=== PATIENT | female | born 1965 | race Caucasian/White ===

== ENCOUNTER 2017-02-15 09:58 | Emergency (ER) | payer SELFPAY ==
[2017-02-15 10:02] VITALS: TEMP 98.1; BMI 28.8
--- NOTE | 2017-02-15 10:12 | PDOC ---
History of Present Illness - General History Source: Patient Exam Limitations: No Limitations - History of Present Illness Initial Comments: 02/15/17 10:41 The patient is a 51 year old female, with a significant past medical history of HTN and NIDDM, who presents to the emergency department with elevated blood pressure. The patient reports having associated intermittent headaches. When she has the headaches, they are frontal, gradual in onset, and resolve with tylenol. She says she often has a headache when her BP is high, and has a 4/10 headache currently. Has not been checking her BP at home. She denies recent fevers, chills, or dizziness. She denies recent nausea, vomit, diarrhea or constipation. She denies recent dysuria, frequency, urgency or hematuria. She denies recent dizziness, lightheadedness, chest pain or shortness of breath. Pt reports that she ran out of BP meds 2 months ago and has not been able to obtain them as she has a lapse in her insurance. She reports she will be insured again on 02/26 and already as an appointment scheduled with her PMD. Allergies: NKA Past surgical history: None reported. Social history: Nonsmoker. Denies EtOH use and recreational drug use. Primary Care Physician: Dr.James Arzola <Patrick Wallace - Last Filed: 02/15/17 10:41> <Ed Card - Last Filed: 02/15/17 11:12> - General Chief Complaint: Blood Pressure Problem Stated Complaint: ELEVATED BP Time Seen by Provider: 02/15/17 10:12 Past History <Patrick Wallace - Last Filed: 02/15/17 10:41> - Past Medical History HTN: Yes - Psycho/Social/Smoking Cessation Hx Anxiety: No Suicidal Ideation: No Smoking History: Never smoked Have you smoked in the past 12 months: No Information on smoking cessation initiated: No Hx Alcohol Use: No Drug/Substance Use Hx: No Substance Use Type: None <Ed Card - Last Filed: 02/15/17 11:12> - Past Medical History Allergies/Adverse Reactions: Allergies Allergy/AdvReac Type Severity Reaction Status Date / Time No Known Allergies Allergy Verified 02/15/17 09:59 Home Medications: Ambulatory Orders Atorvastatin Ca [Lipitor] 40 mg PO HS #14 tablet 02/15/17 Hydrochlorothiazide 25 mg PO DAILY #14 tablet 02/15/17 Hydrochlorothiazide [Hctz -] 0 mg PO DAILY 02/15/17 Ramipril 5 mg PO DAILY #14 capsule 02/15/17 Ramipril [Altace] 0 mg PO DAILY 02/15/17 Review of Systems - Review of Systems Able to Perform ROS?: Yes Comments:: 02/15/17 10:42 GENERAL/CONSTITUTIONAL: No fever or chills. No weakness. HEAD, EYES, EARS, NOSE AND THROAT: No change in vision. No ear pain or discharge. No sore throat. CARDIOVASCULAR: No chest pain or shortness of breath. RESPIRATORY: No cough, wheezing, or hemoptysis. GASTROINTESTINAL: No nausea, vomiting, diarrhea or constipation. GENITOURINARY: No dysuria, frequency, or change in urination. MUSCULOSKELETAL: No joint or muscle swelling or pain. No neck or back pain. SKIN: No rash NEUROLOGIC: +headache. No vertigo, loss of consciousness, or change in strength/ sensation. ENDOCRINE: No increased thirst. No abnormal weight change. HEMATOLOGIC/LYMPHATIC: No anemia, easy bleeding, or history of blood clots. ALLERGIC/IMMUNOLOGIC: No hives or skin allergy. <Patrick Wallace - Last Filed: 02/15/17 10:41> *Physical Exam - Vital Signs Last Vital Signs Temp Pulse Resp BP Pulse Ox 98.1 F 85 18 166/95 100 02/15/17 09:59 02/15/17 09:59 02/15/17 09:59 02/15/17 09:59 02/15/17 09:59 - Physical Exam Comments: 02/15/17 10:42 GENERAL: Awake, alert, and fully oriented, in no acute distress HEAD: No signs of trauma EYES: PERRLA, EOMI, sclera anicteric, conjunctiva clear ENT: Auricles normal inspection, hearing grossly normal, nares patent, oropharynx clear without exudates. Moist mucosa NECK: Normal ROM, supple, no lymphadenopathy, JVD, or masses LUNGS: Breath sounds equal, clear to auscultation bilaterally. No wheezes, and no crackles HEART: Regular rate and rhythm, normal S1 and S2, no murmurs, rubs or gallops ABDOMEN: Not remarkable. Soft, nontender, normoactive bowel sounds. No guarding , no rebound. No masses EXTREMITIES: Normal range of motion, no edema. No clubbing or cyanosis. No cords , erythema, or tenderness NEUROLOGICAL: Normal speech, cranial nerves intact, negative pronator drift, 5/ 5 strength in all 4 extremities, normal sensation to light touch in all 4 extremities, normal cerebellar exam, normal gait, normal reflexes and tone SKIN: Warm, Dry, normal turgor, no rashes or lesions noted. <Patrick Wallace - Last Filed: 02/15/17 10:41> - Vital Signs Last Vital Signs Temp Pulse Resp BP Pulse Ox 98.1 F 85 18 166/95 100 02/15/17 09:59 02/15/17 09:59 02/15/17 09:59 02/15/17 09:59 02/15/17 09:59 <Ed Card - Last Filed: 02/15/17 11:12> Medical Decision Making - Medical Decision Making 02/15/17 10:22 Call made to 's office, will fax over meds list. <Patrick Wallace - Last Filed: 02/15/17 10:41> - Medical Decision Making 02/15/17 11:02 51yo F hx of hypertension presents with elevated blood pressure and frontal headache after she ran out of her blood pressure medications 2 months ago. Pt has had many similar headaches over the last two months when her BP is high. Exam here, including neuro exam is unremarkable. Blood pressure in the 150s systolic. Likely hypertensive urgency. Medication list has been obtained from Dr. Bryant's office, will refill her medications and discharge to follow up as soon as her insurance is reinstated -tylenol for buchanan -refill meds -DC <Ed Card - Last Filed: 02/15/17 11:12> *DC/Admit/Observation/Transfer - Attestations Scribe Attestion: 02/15/17 10:42 Documentation prepared by Patrick Wallace, acting as medical sonographer for Ed Card MD. <Patrick Wallace - Last Filed: 02/15/17 10:41> - Discharge Dispostion Admit: No - Attestations Physician Attestion: 02/15/17 11:12 I, Dr. Ed Card MD, attest that this document has been prepared under my direction and personally reviewed by me in its entirety. I further attest, that it accurately reflects all work, treatment, procedures and medical decision -making performed by me. <Ed Card - Last Filed: 02/15/17 11:12> Diagnosis at time of Disposition: Hypertension Qualifiers: Hypertension type: unspecified Qualified Code(s): I10 - Essential (primary) hypertension - Discharge Dispostion Disposition: HOME Condition at time of disposition: Stable - Patient Instructions Printed Discharge Instructions: DI for High Blood Pressure Additional Instructions: Follow up with Dr. Arzola within 1-2 weeks. Return to the emergency department immediately if you experience Chest pain, shortness of breath, uncontrolled pain, weakness, or any other concerning symptoms
[2017-02-15] MEDS ORDERED: ACETAMINOPHEN 500 MG TABLET (FP) PO ONE (10:34)
[2017-02-15] MEDS ORDERED: ACETAMINOPHEN 325 MG TABLET (FP) ONE (10:37)
[2017-02-15 11:19] VITALS: BP 157/97; PULSE 82
== END 2017-02-15 11:19 | disposition home or self-care (01) ==
LOC: JER 09:58
DX: I10 Essential (primary) hypertension (principal); E11.9 Type 2 diabetes mellitus without complications; Z79.84 Long term (current) use of oral hypoglycemic drugs; Z91.14 Patient's other noncompliance with medication regimen
CPT/HCPCS: 99283-25

== ENCOUNTER 2017-08-19 11:52 | Emergency (ER) | payer OTHER ==
[2017-08-19 12:08] VITALS: BP 168/96; PULSE 83; TEMP 98; BMI 29.9
--- NOTE | 2017-08-19 12:27 | PDOC ---
History of Present Illness - General Chief Complaint: Cold Symptoms Stated Complaint: FLU LIKE SYMPTOMS Time Seen by Provider: 08/19/17 12:14 History Source: Patient Exam Limitations: No Limitations - History of Present Illness Initial Comments: 08/19/17 12:25 c/o post nasal drip and lump in throat with sinus congestion for 2 days no fever no abd pain no chest pain. Past History - Past Medical History Allergies/Adverse Reactions: Allergies Allergy/AdvReac Type Severity Reaction Status Date / Time No Known Allergies Allergy Verified 08/19/17 12:04 Home Medications: Ambulatory Orders Atorvastatin Ca [Lipitor] 40 mg PO HS #14 tablet 02/15/17 Hydrochlorothiazide 25 mg PO DAILY #14 tablet 02/15/17 Hydrochlorothiazide [Hctz -] 0 mg PO DAILY 02/15/17 Ramipril 5 mg PO DAILY #14 capsule 02/15/17 Ramipril [Altace] 0 mg PO DAILY 02/15/17 Fluticasone Prop 0.05% Nasal [Flonase -] 1 - 2 spray NS BID #1 spray.pump COPD: No Diabetes: Yes HTN: Yes - Suicide/Smoking/Psychosocial Hx Smoking History: Never smoked Have you smoked in the past 12 months: No Hx Alcohol Use: No Drug/Substance Use Hx: No Substance Use Type: None *Physical Exam - Vital Signs Last Vital Signs Temp Pulse Resp BP Pulse Ox 98 F 83 19 168/96 99 08/19/17 12:04 08/19/17 12:04 08/19/17 12:04 08/19/17 12:04 08/19/17 12:04 - Physical Exam General Appearance: Yes: Nourished, Appropriately Dressed HEENT: positive: EOMI, SUKUMAR, TMs Normal, Other (post nasal drip noted) Neck: positive: Supple. negative: Tender Respiratory/Chest: positive: Lungs Clear, Normal Breath Sounds. negative: Chest Tender Cardiovascular: positive: Regular Rhythm, Regular Rate Gastrointestinal/Abdominal: positive: Normal Bowel Sounds, Soft Lymphatic: negative: Adenopathy Musculoskeletal: positive: Normal Inspection Extremity: positive: Normal Capillary Refill, Normal Inspection, Normal Range of Motion Integumentary: positive: Normal Color, Dry, Warm Neurologic: positive: Fully Oriented, Alert, Normal Mood/Affect, Normal Response , Motor Strength 5/5 Medical Decision Making - Medical Decision Making 08/19/17 12:39 cc: "lump in throat" for 2 days feels phlegm in the back of the throat, pt feels "a drip in her throat" sinus congestion no sinus drainage will treat for post nasal drip pt understands strict follow up with ENT if symptoms worsen *DC/Admit/Observation/Transfer Diagnosis at time of Disposition: Post-nasal drip - Discharge Dispostion Disposition: HOME Condition at time of disposition: Good - Prescriptions Prescriptions: Fluticasone Prop 0.05% Nasal [Flonase -] 1 - 2 spray NS BID #1 spray.pump - Referrals Referrals: Johnson Arzola MD [Primary Care Provider] - Ender Bal MD [Staff Physician] - - Patient Instructions Additional Instructions: drink pleanty of fluids to stay well hydrated, drink 2 liters of water a day use the Flonase nasal spray as directed at the same time in the morning, you can use twice a day if no relief from once a day follow with the ENT if symptoms do not improve. - Post Discharge Activity
== END 2017-08-19 12:33 | disposition home or self-care (01) ==
LOC: JERFT 11:52
DX: J34.89 Other specified disorders of nose and nasal sinuses (principal); R09.82 Postnasal drip; I10 Essential (primary) hypertension; E11.9 Type 2 diabetes mellitus without complications
CPT/HCPCS: 99281-25

== ENCOUNTER 2018-03-19 14:24 | Emergency (ER) | payer OTHER ==
[2018-03-19 14:46] VITALS: BMI 31.6
[2018-03-19 16:13] LABS: URINE APPEARANCE SLCLOUDY; URINE BILIRUBIN NEGATIVE (<2.0 mg/dL); URINE COLOR YELLOW; URINE GLUCOSE (UA) 3+ (NEGATIVE); URINE KETONE NEGATIVE (NEGATIVE); URINE LEUK ESTERASE NEGATIVE (NEGATIVE); URINE NITRITE NEGATIVE (NEGATIVE); URINE UROBILINOGEN NEGATIVE mg/dL (0.2-1.0)
[2018-03-19 16:14] LABS: BASO % 0.6 % (0-2.0); EOS % 0.8 % (0-4.5); HEMOGLOBIN 13.5 GM/dL (10.7-15.3); LYMPH % 40.4 % (8-40); MCH 29.6 pg (25.7-33.7); MCHC 34.5 g/dl (32.0-36.0); MEAN CELL VOLUME 85.9 fl (80-96); MONO % 8.6 % (3.8-10.2); NEUT % 49.6 % (42.8-82.8); PLATELET COUNT 367 K/MM3 (134-434); RBC 4.54 M/mm3 (3.60-5.2); RDW 13.1 % (11.6-15.6); WHITE BLOOD COUNT 5.4 K/mm3 (4.0-10.0)
[2018-03-19 16:21] LABS: URINE PROTEIN 3+ (NEGATIVE)
--- NOTE | 2018-03-19 16:23 | PDOC ---
History of Present Illness - General Chief Complaint: Pain, Acute Stated Complaint: FATIGUE Time Seen by Provider: 03/19/18 14:35 History Source: Patient, Old Records Exam Limitations: No Limitations - History of Present Illness Initial Comments: 52 y/o female presenting to [facility] ER via private auto complaining of three days of abdominal pain. Pain is localized to RLQ with infrequent radiation to back. Pt reports decreased frequency of bowel movements, last normal was 3 days ago, increased flatus, and increased eructation. Took OTC dulcolax and magnesium citrate this AM with some decrease in pain and a small BM. Denies h/o of similar episodes, previous abdominal surgeries, gastroparesis, or symptoms. Home glucose averages in the mid 100s. Does not recall last A1C. PCP: Johnson Arzola Medical Hx: - HTN - DM, managed with metformin only. Surgical Hx: - Pt denies past surgical history. Past History - Past Medical History Allergies/Adverse Reactions: Allergies Allergy/AdvReac Type Severity Reaction Status Date / Time No Known Allergies Allergy Verified 08/19/17 12:04 Home Medications: Ambulatory Orders Atorvastatin Ca [Lipitor] 40 mg PO HS #14 tablet 02/15/17 Hydrochlorothiazide 25 mg PO DAILY #14 tablet 02/15/17 Ramipril 5 mg PO DAILY #14 capsule 02/15/17 Amlodipine Besylate [Norvasc -] 5 mg PO DAILY 03/19/18 Metformin HCl [Glucophage] 500 mg PO BID 03/19/18 COPD: No Diabetes: Yes HTN: Yes - Suicide/Smoking/Psychosocial Hx Smoking History: Former smoker Have you smoked in the past 12 months: No Information on smoking cessation initiated: No Hx Alcohol Use: No Drug/Substance Use Hx: No Substance Use Type: None Review of Systems - Review of Systems Able to Perform ROS?: Yes Comments:: In addition to that documented in the HPI above, the additional ROS was obtained : Constitutional: Denies fevers or chills Eyes: Denies vision changes ENMT: Denies sore throat CV: Denies chest pain Resp: Denies SOB GI: Denies vomiting or diarrhea : Denies painful urination MSK: Denies recent trauma Skin: Denies new rashes Neuro: Denies new numbness or tingling or weakness Endocrine: Denies polyuria Heme: Denies bleeding disorders Is the patient limited Mongolian proficient: No *Physical Exam - Vital Signs Last Vital Signs Temp Pulse Resp BP Pulse Ox 98.9 F 93 H 18 152/90 100 03/19/18 14:44 03/19/18 14:44 03/19/18 14:44 03/19/18 14:44 03/19/18 14:44 - Physical Exam Comments: Constitutional: Well-developed, well-nourished female in no acute distress or obvious discomfort. Found sitting upright on edge of hospital bed. Alert and oriented x4. Answered all questions appropriately and completely. Speech was non -labored, non-pressured. HEENT: Normocephalic. No obvious external signs of trauma. Hearing grossly normal. No nasal discharge. Neck is supple, trachea is midline. Cardiovascular: Regular rate and regular rhythm. No murmur, rubs, clicks, or gallops. Peripheral pulses: Radial pulses full. Respiratory: Breathing unlabored. Equal chest rise and fall. Clear to auscultation bilaterally. No stridor, no wheezing, no rhonchi. Gastrointestinal: abdomen is subjectively tender in RLQ without rebound, guarding, or grimace. Globally, abdomen is soft and non-distended. No hepatosplenemegaly. No pulsatile masses. No overlying skin lesions or obvious signs of trauma. Neuro: Alert and oriented. Moving all four extremities spontaneously. Gait normal. Observed walking through department without assistance or obvious distress. Skin: Warm, dry, and intact. No bruising, rashes, or other lesions. : No R or L CVA tenderness. Psych: Affect: appropriate. Mood: normal. ED Treatment Course - LABORATORY CBC & Chemistry Diagram: 03/19/18 16:02 03/19/18 16:02 Medical Decision Making - Medical Decision Making *Reviewed vital signs, nursing notes, and prior visit documentation (if available). 52 y/o female with virgin abdomen complaining of 3 days of RLQ abdominal pain with decreased BM and improvement with OTC dulcolax and mag citrate. No obstructive signs or urinary symptoms. Afebrile. Vitals remarkable for mild hypertension, which is consistent with history. Benign physical exam. D/D: Constipation, partial obstruction, Ileus, IBS, gastroparesis, cystitis, pyelonephritis, nephrolithiasis, cholelithiasis, cholecystitis, pancreatitis. Low suspicion for complete obstruction, AAA or mesenteric ischemia. Will obtain CBC, CMP, lipase, and lactate to further evaluate as pt is a vasculopath. POCUS of abdominal aorta: grossly normal appearing with no obvious aneurysms. POCUS of gallbladder: grossly normal. No obvious stones. Wall within normal caliber. No sonographic [place] sign. POCUS of Right and Left Kidney: Grossly normal. No obvious hydronephrosis. CBC unremarkable for anemia or leukocytosis. CMP remarkable for elevated glucose. LFTs not elevated. Pt reports eating prior to arrival without taking her daily metformin. Low suspicion for DKA without anion gap. UA revealed glucose and protein but no ketones. Suspect secondary to elevated BGL. Ordered NS IVFB and regular insulin. Will recheck glucose after therapy. Pt reports she did not take her metformin this morning. POC glucose revealed improved hyperglycemia. Pt stable for discharge. Suspect constipation. Discussed imaging and laboratory results with pt. Answered all questions. Provided return precautions. Pt expressed verbal understanding and agreement with plan to discharge home with outpatient follow up. Suggested OTC Miralax for symptom relief. *DC/Admit/Observation/Transfer Diagnosis at time of Disposition: Hyperglycemia without ketosis Abdominal pain Qualifiers: Abdominal location: right lower quadrant Qualified Code(s): R10.31 - Right lower quadrant pain - Discharge Dispostion Disposition: HOME Condition at time of disposition: Good Decision to Admit order: No - Referrals Referrals: Johnson Arzola MD [Primary Care Provider] - - Patient Instructions Printed Discharge Instructions: DI for Constipation, DI for Hyperglycemia -- Adult Additional Instructions: Your labs showed your blood sugar level was elevated. This is probably because you didn't take your metformin this morning. Your abdominal pain is likely caused by constipation. I recommend trying over the counter Miralax. You can buy this at any pharmacy. Take as directed on the package insert. Go to the nearest emergency department if your symptoms worsen or you feel as though you need additional an emergency evaluation. Please follow up with your primary care doctor within the next 3-4 days. You will need to call to make an appointment. Take this packet with you. I have attached your results from today's visit to this packet for your doctor to review. Print Language: GAMBIAN - Post Discharge Activity
[2018-03-19 16:31] LABS: EPI CELLS RARE /HPF (FEW); GRANULAR CASTS 1 /lpf; URINE HYALINE CAST 13 /lpf; URINE MUCUS MODERATE
--- NOTE | 2018-03-19 16:42 | PDOC ---
Attending Attestation - Resident Resident Name: Basim Hicks - ED Attending Attestation I have performed the following: I have examined & evaluated the patient, The case was reviewed & discussed with the resident, I agree w/resident's findings & plan - HPI HPI: 03/19/18 16:43 THOMAS is a 48 YOF with h/o NIDDM and hypertension who presents to the emergency department for evaluation of 3 days of RLQ abdominal pain. Admits to Infrequent bowel movements, increased flatus, last normal bm 3 days ago, but has been taking laxative pills with some relief and pellets this morning. Lower abdominal pain intermittently radiating to back. No rash, no symptoms. No n/v/d, fever or chills, cp or sob, buchanan or dizziness. no VB or discharge. No similar episode of abdominal pain or history of abdominal surgery. Dulcolax and mag citrate some relief, small bm produced. 03/19/18 16:44 - Physicial Exam PE: 03/19/18 16:44 NAD, well appearing, MMM, nl conjunctiva, anicteric; neck supple. lungs clear, RRR, abdomen soft nontender. no CVAT. no peritoneal signs. no RLQ or LLQ tenderness. PAREDES x4, no focal neuro deficits. No peripheral edema. normal color for ethnicity, WWP. - Medical Decision Making 03/19/18 16:44 THOMAS is a 48 YOF with h/o NIDDM and hypertension who presents to the emergency department for evaluation of 3 days of RLQ abdominal pain. Admits to Infrequent bowel movements, increased flatus, last normal bm 3 days ago, but has been taking laxative pills with some relief and pellets this morning. Lower abdominal pain intermittently radiating to back. DDx abdominal pain: GERD, PUD, esophageal spasm, pancreatitis, hepatitis, constipation, colitis, gastroenteritis, cholecystitis, UTI, pyelonephritis, ileus, SBO, medication side effect, hernia, appendicitis, diverticulitis, AAA, mesenteric ischemia. abdomen soft and benign, non peritoneal to suggest intra abdominal pathology. Bedside POCUS aorta neg for AAA down to bifurcation Bedside renal POCUS neg for hydronephrosis bilaterally Bedside biliary US neg for stones or sono Navarro's or acute cholecystitis. no cp or sob to suggest cardiovascular or pulmonary pathology. labs and lytes wnl, with elevated glucose to >300s. neg urinary ketones so clinically doubting DKA or HHS with no other symptoms or AMS. give IVF, regular insulin SQ 8 units, recheck POCT glucose anticipate discharge with reeval and repeat check. glycemic control and f/u test technician/PMD for glycemic control and constipation care high fiber diet discussed, miralax for bowel regimen. return precautions discussed including Fever, local Abdominal pain in RUQ or RLQ , urinary sx, dehydration, AMS, cp/sob, respiratory distress or other worsening sx. compliance with diabetic and high fiber diet discussed. 03/19/18 16:45 03/19/18 17:07 03/19/18 17:10
[2018-03-19 16:48] LABS: ALBUMIN 3.4 g/dl (3.4-5.0); ALK PHOS 122 U/L (45-117); ANION GAP 6 MMOL/L (8-16); BILIRUBIN,TOTAL 0.6 mg/dL (0.2-1); BLOOD UREA NITROGEN 8 mg/dL (7-18); CALCIUM 9.8 mg/dL (8.5-10.1); CHLORIDE 98 mmol/L (98-107); CO2 30 mmol/L (21-32); CREATININE 0.7 mg/dL (0.55-1.3); LIPASE 353 U/L (73-393); POTASSIUM 4.4 mmol/L (3.5-5.1); SGOT/AST 12 U/L (15-37); SGPT/ALT 19 U/L (13-61); SODIUM 134 mmol/L (136-145); TOT PROT 7.7 g/dl (6.4-8.2)
[2018-03-19 16:49] LABS: GLUCOSE,RANDOM 312 mg/dL (74-106)
[2018-03-19] MEDS ORDERED: SODIUM CHLORIDE 0.9% 500 ML INFUS.BAG IV ONE (16:56)
[2018-03-19] MEDS ORDERED: INSULIN REGULAR HUMAN 100 UNITS/ML *VIAL SQ ONE (17:04)
[2018-03-19] MEDS ORDERED: INSULIN REGULAR HUMAN 100 UNITS/ML *VIAL ONE (17:42)
[2018-03-19] MEDS ORDERED: HEMOQUE TEST 1 EACH EACH ONE (19:08)
[2018-03-19 19:37] VITALS: BP 162/84; PULSE 72; TEMP 98.2
== END 2018-03-19 19:30 | disposition home or self-care (01) ==
LOC: JER 14:24
PROC: 3E013VG Introduction of Insulin into Subcutaneous Tissue, Percutaneous Approach (ICD-10-PCS; principal; 2018-03-19)
DX: R10.30 Lower abdominal pain, unspecified (principal); E11.65 Type 2 diabetes mellitus with hyperglycemia; Z79.84 Long term (current) use of oral hypoglycemic drugs; I10 Essential (primary) hypertension
CPT/HCPCS: 36415; 80053; 81003; 81015; 82962; 83605; 83690; 85025; 96372; 99283-25

== ENCOUNTER 2019-02-06 17:45 | Emergency (ER) | payer OTHER ==
--- NOTE | 2019-02-06 18:00 | PDOC ---
Rapid Medical Evaluation Time Seen by Provider: 02/06/19 17:58 Medical Evaluation: Allergies Allergy/AdvReac Type Severity Reaction Status Date / Time No Known Allergies Allergy Verified 08/19/17 12:04 02/06/19 17:59 HPI: B leg pain x3 weeks PE: No gross deficits ORDERS: Doppler B LE's Discharge Disposition - Diagnosis Leg pain - Referrals - Patient Instructions - Post Discharge Activity
[2019-02-06 18:04] VITALS: BP 157/75; PULSE 85; TEMP 98.1; BMI 29.6
--- NOTE | 2019-02-06 18:46 | PDOC ---
History of Present Illness - General Chief Complaint: Pain Stated Complaint: LEG PAIN BILAT/FELL 3 WKS AGO Time Seen by Provider: 02/06/19 17:58 - History of Present Illness Initial Comments: 02/06/19 18:25 CHIEF COMPLAINT: HISTORY OF PRESENT ILLNESS: No recent travel or sick contacts. PAST MEDICAL HISTORY: Denies past medical history FAMILY HISTORY: Denies SOCIAL HISTORY: Lives at home with ____. Occupation: . Denies tobacco, alcohol, illicit drug use. SURGICAL HISTORY: Denies ALLERGIES: No known drug allergies REVIEW OF SYSTEMS General/Constitutional: Denies fever or chills. Denies weakness, weight change. HEENT: Denies change in vision. Denies ear pain or discharge. Denies sore throat. Cardiovascular: Denies chest pain or shortness of breath. Respiratory: Denies cough, wheezing, or hemoptysis. Gastrointestinal: Denies nausea, vomiting, diarrhea or constipation. Denies rectal bleeding. Genitourinary: Denies dysuria, frequency, or change in urination. Musculoskeletal: Denies joint or muscle swelling or pain. Denies neck or back pain. Skin and breasts: Denies rash or easy bruising. Neurologic: Denies headache, vertigo, loss of consciousness, or loss of sensation. Psychiatric: Denies depression or anxiety. Endocrine: Denies increased thirst. Denies abnormal weight change. Hematologic/Lymphatic: Denies anemia, easy bleeding, or history of blood clots. Allergic/Immunologic: Denies hives or skin allergy. Denies latex allergy. PHYSICAL EXAM General Appearance: Well-appearing, appropriately dressed. No apparent distress , no intoxication. HEENT: EOMI, PERRLA, normal ENT inspection, normal voice, TMs normal, pharynx normal. No conjunctival pallor. No photophobia, scleral icterus. Neck: Supple. Trachea midline. No tenderness, rigidity, carotid bruit, stridor , lymphadenopathy, or thyromegaly. Respiratory/Chest: Lungs CTAB. No shortness of breath, chest tenderness, respiratory distress, accessory muscle use. No crackles, rales, rhonchi, stridor , wheezing, dullness Cardiovascular: RRR. S1, S2. No JVD, murmur, bradycardia, tachycardia. Vascular Pulses: Dorsalis-Pedis (R): 2+, Dorsalis-Pedis (L): 2+ Gastrointestinal/Abdominal: Normal bowel sounds. Abdomen soft, non-distended. No tenderness or rebound tenderness. No organomegaly, pulsatile mass, guarding , hernia, hepatomegaly, splenomegaly. Lymphatic: No adenopathy, tenderness. Musculoskeletal/Extremities: Normal inspection. FROM of all extremities, normal capillary refill. Pelvis Stable. No CVA tenderness. No tenderness to extremities, pedal edema, swelling, erythema or deformity. Integumentary: Appropriate color, dry, warm. No cyanosis, erythema, jaundice or rash Neurologic: human resources records clerk II-XII intact. Fully oriented, alert. Appropriate mood/affect. Motor strength 5/5. No appreciable EOM palsy, facial droop or sensory deficit. Past History - Past Medical History Allergies/Adverse Reactions: Allergies Allergy/AdvReac Type Severity Reaction Status Date / Time No Known Allergies Allergy Verified 02/06/19 17:59 Home Medications: Ambulatory Orders Atorvastatin Ca [Lipitor] 40 mg PO HS #14 tablet 02/15/17 Hydrochlorothiazide 25 mg PO DAILY #14 tablet 02/15/17 Amlodipine Besylate [Norvasc -] 5 mg PO DAILY 03/19/18 Metformin HCl [Glucophage] 500 mg PO BID 03/19/18 COPD: No Diabetes: Yes HTN: Yes - Suicide/Smoking/Psychosocial Hx Smoking History: Unknown if ever smoked Have you smoked in the past 12 months: No Hx Alcohol Use: No Drug/Substance Use Hx: No Substance Use Type: None *Physical Exam - Vital Signs Last Vital Signs Temp Pulse Resp BP Pulse Ox 98.1 F 85 16 157/75 99 02/06/19 18:02 02/06/19 18:02 02/06/19 18:02 02/06/19 18:02 02/06/19 18:02 *DC/Admit/Observation/Transfer Diagnosis at time of Disposition: Leg pain - Referrals Referrals: Johnson Arzola MD [Primary Care Provider] - - Patient Instructions - Post Discharge Activity
--- NOTE | 2019-02-06 19:47 | PDOC ---
History of Present Illness - General Chief Complaint: Pain Stated Complaint: LEG PAIN BILAT/FELL 3 WKS AGO Time Seen by Provider: 02/06/19 17:58 History Source: Patient - History of Present Illness Occurred: reports: other Lower Extremity Pain Location: bilateral: other (LE) Past History - Past Medical History Allergies/Adverse Reactions: Allergies Allergy/AdvReac Type Severity Reaction Status Date / Time No Known Allergies Allergy Verified 02/06/19 17:59 Home Medications: Ambulatory Orders Atorvastatin Ca [Lipitor] 40 mg PO HS #14 tablet 02/15/17 Hydrochlorothiazide 25 mg PO DAILY #14 tablet 02/15/17 Amlodipine Besylate [Norvasc -] 5 mg PO DAILY 03/19/18 Metformin HCl [Glucophage] 500 mg PO BID 03/19/18 COPD: No Diabetes: Yes HTN: Yes - Suicide/Smoking/Psychosocial Hx Smoking History: Unknown if ever smoked Have you smoked in the past 12 months: No Hx Alcohol Use: No Drug/Substance Use Hx: No Substance Use Type: None Review of Systems - Review of Systems Musculoskeletal: No: Joint Pain, Joint Swelling *Physical Exam - Vital Signs Last Vital Signs Temp Pulse Resp BP Pulse Ox 98.1 F 85 16 157/75 99 02/06/19 18:02 02/06/19 18:02 02/06/19 18:02 02/06/19 18:02 02/06/19 18:02 - Physical Exam General Appearance: Yes: Appropriately Dressed. No: Apparent Distress HEENT: positive: Normal Voice Neck: positive: Supple Respiratory/Chest: negative: Respiratory Distress Extremity: positive: Normal Inspection, Normal Range of Motion. negative: Tender, Swelling Integumentary: positive: Dry, Warm Neurologic: positive: Fully Oriented, Alert, Normal Mood/Affect Medical Decision Making - Medical Decision Making 02/06/19 19:44 53 yo F, h/o HTN, DM, here w/ diffuse pain to b/l LE after trip and fall 3-4 weeks ago. No swelling and ambulating since fall. No hip pain. Taking OTC meds w / some relief See exam B/l LE pain s/p fall ~1 month ago Exam unremarkable and ambulating B/l dopplers ordered from E for unclear reasons and neg Dc to continue OTC meds prn and f/u with PMD *DC/Admit/Observation/Transfer Diagnosis at time of Disposition: Leg pain Qualifiers: Laterality: bilateral Qualified Code(s): M79.604 - Pain in right leg; M79.605 - Pain in left leg - Discharge Dispostion Disposition: HOME Condition at time of disposition: Good - Referrals Referrals: Johnson Arzola MD [Primary Care Provider] - - Patient Instructions Additional Instructions: The US of your legs were normal Your leg pain may be muscular Take motrin or tylenol for pain and follow up with your PMD - Post Discharge Activity
== END 2019-02-06 19:48 | disposition home or self-care (01) ==
LOC: JERFT 17:45
DX: M79.604 Pain in right leg (principal); M79.605 Pain in left leg; I10 Essential (primary) hypertension; E11.9 Type 2 diabetes mellitus without complications; Z79.84 Long term (current) use of oral hypoglycemic drugs
CPT/HCPCS: 93970-TC; 99281-25

== ENCOUNTER 2019-03-27 22:46 | Emergency (ER) | payer SELFPAY ==
[2019-03-27 22:57] VITALS: BP 152/80; PULSE 89; TEMP 98.3; BMI 29.9
--- NOTE | 2019-03-27 23:43 | PDOC ---
History of Present Illness - General Chief Complaint: Ear Problem Stated Complaint: PAIN Time Seen by Provider: 03/27/19 23:41 History Source: Patient - History of Present Illness Initial Comments: 03/28/19 00:14 53 year old female c/o sore throat, ear pain x 1 day. denies fever/ chills. denies nausea, vomiting, chest pain. 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 PMHX: htn, diabetes. Past History - Past Medical History Allergies/Adverse Reactions: Allergies Allergy/AdvReac Type Severity Reaction Status Date / Time No Known Allergies Allergy Verified 02/06/19 17:59 Home Medications: Ambulatory Orders Atorvastatin Ca [Lipitor] 40 mg PO HS #14 tablet 02/15/17 Hydrochlorothiazide 25 mg PO DAILY #14 tablet 02/15/17 Amlodipine Besylate [Norvasc -] 5 mg PO DAILY 03/19/18 Metformin HCl [Glucophage] 500 mg PO BID 03/19/18 Azithromycin [Zithromax 250mg Tablets -] 250 mg PO UTDICT #6 tab 03/28/19 COPD: No Diabetes: Yes HTN: Yes - Psycho Social/Smoking Cessation Hx Smoking History: Never smoked Have you smoked in the past 12 months: No Hx Alcohol Use: No Drug/Substance Use Hx: No Substance Use Type: None Review of Systems - Review of Systems Able to Perform ROS?: Yes Is the patient limited Spanish proficient: No Constitutional: No: Symptoms Reported, See HPI, Chills, Diaphoresis, Fever, Loss of Appetite, Malaise, Night Sweats, Weakness, Weight Stable, Unintentional Wgt. Loss, Unexplained wgt Loss, Other HEENTM: Yes: Ear Pain, Nose Congestion, Throat Pain, Throat Swelling Respiratory: No: Symptoms reported, See HPI, Cough, Orthopnea, Shortness of Breath, SOB with Exertion, SOB at Rest, Stridor, Wheezing, Productive cough, Hemoptysis, Other ABD/GI: No: Symptoms Reported, See HPI, Abdominal Distended, Abd. Pain w/ defecation, Blood Streaked Bowels, Constipated, Diarrhea, Difficulty Swallowing , Nausea, Poor Appetite, Poor Fluid Intake, Rectal Bleeding, Vomiting, Indigestion, Abdominal cramping, Tarry Stools, Other *Physical Exam - Vital Signs Last Vital Signs Temp Pulse Resp BP Pulse Ox 98.3 F 89 19 152/80 96 03/27/19 22:54 03/27/19 22:54 03/27/19 22:54 03/27/19 22:54 03/27/19 22:54 - Physical Exam General Appearance: Yes: Appropriately Dressed HEENT: positive: Normal ENT Inspection, Pharyngeal Erythema Neck: positive: Lymphadenopathy (R), Lymphadenopathy (L) Respiratory/Chest: positive: Lungs Clear Cardiovascular: positive: Regular Rhythm, Regular Rate Gastrointestinal/Abdominal: positive: Normal Bowel Sounds, Soft. negative: Tender Extremity: positive: Normal Capillary Refill, Normal Inspection, Normal Range of Motion Integumentary: positive: Normal Color, Dry, Warm Neurologic: positive: Fully Oriented, Alert, Normal Mood/Affect Medical Decision Making - Medical Decision Making 03/28/19 02:42 A: URI P: supportive care azithromycin outpatient PCP follow up Discharge - Discharge Information Problems reviewed: Yes Clinical Impression/Diagnosis: Upper respiratory infection Qualifiers: URI type: unspecified URI Qualified Code(s): J06.9 - Acute upper respiratory infection, unspecified - Additional Discharge Information Prescriptions: Azithromycin [Zithromax 250mg Tablets -] 250 mg PO UTDICT #6 tab - Follow up/Referral Referrals: Johnson Arzola MD [Primary Care Provider] - - Patient Discharge Instructions Patient Printed Discharge Instructions: Common Cold Additional Instructions: Drink plenty of fluids Gargle with warm salty water Drink warm liquids Take ibuprofen every 6 hours as needed for pain or fever Follow with your doctor as soon as possible. - Post Discharge Activity Work/Back to School Note: Back to Work
--- NOTE | 2019-03-27 23:52 | PDOC ---
*Physical Exam - Vital Signs Last Vital Signs Temp Pulse Resp BP Pulse Ox 98.3 F 89 19 152/80 96 03/27/19 22:54 03/27/19 22:54 03/27/19 22:54 03/27/19 22:54 03/27/19 22:54 Medical Decision Making - Medical Decision Making 03/27/19 23:52 Patient seen by the advanced practice provider under my direct supervision. Ancillary testing reviewed as necessary. I agree with plan as outlined by the advanced practice provider. Discharge - Discharge Information Problems reviewed: Yes Clinical Impression/Diagnosis: Upper respiratory infection Qualifiers: URI type: unspecified URI Qualified Code(s): J06.9 - Acute upper respiratory infection, unspecified - Additional Discharge Information Prescriptions: Azithromycin [Zithromax 250mg Tablets -] 250 mg PO UTDICT #6 tab - Follow up/Referral Referrals: Johnson Arzola MD [Primary Care Provider] - - Patient Discharge Instructions Patient Printed Discharge Instructions: Common Cold Additional Instructions: Drink plenty of fluids Gargle with warm salty water Drink warm liquids Take ibuprofen every 6 hours as needed for pain or fever Follow with your doctor as soon as possible. - Post Discharge Activity Work/Back to School Note: Back to Work
[2019-03-28] MEDS ORDERED: IBUPROFEN 600 MG TABLET (FP) PO ONE ×2 (00:21→00:33)
== END 2019-03-28 00:49 | disposition home or self-care (01) ==
LOC: JER 22:46
DX: J06.9 Acute upper respiratory infection, unspecified (principal); I10 Essential (primary) hypertension; E11.9 Type 2 diabetes mellitus without complications; Z79.84 Long term (current) use of oral hypoglycemic drugs
CPT/HCPCS: 99281-25

== ENCOUNTER 2020-11-26 10:09 | Inpatient (IN) | payer OTHER ==
[2020-11-26 10:22] VITALS: BMI 29.9
[2020-11-26] MEDS ORDERED: SODIUM CHLORIDE 1,000 ML IV SCH (10:30)
[2020-11-26] MEDS ORDERED: ATORVASTATIN CA 80 MG TABLET (FP) PO ONE (10:54)
[2020-11-26] MEDS ORDERED: ASPIRIN 81 MG CHEWABLE TABLETS PO ONE (10:54)
[2020-11-26] MEDS ORDERED: ATORVASTATIN CA 80 MG TABLET (FP) ONE (10:59)
[2020-11-26] MEDS ORDERED: ASPIRIN COATED 81 MG TABLET.EC ONE (10:59)
[2020-11-26 11:14] LABS: BASO % 0.9 % (0-2.0); EOS % 0.1 % (0-4.5); HEMATOCRIT 38.6 % (32.4-45.2); HEMOGLOBIN 13.5 GM/dL (10.7-15.3); MEAN CELL VOLUME 85.6 fl (80-96); MEAN PLT VOLUME 8.1 fl (7.5-11.1); MONO % 7.5 % (3.8-10.2); NEUT % 72.5 % (42.8-82.8); PLATELET COUNT 361 K/MM3 (134-434); RBC 4.51 M/mm3 (3.60-5.2); RDW 13.5 % (11.6-15.6); WHITE BLOOD COUNT 7.7 K/mm3 (4.0-10.0)
[2020-11-26 11:22] LABS: INR 0.96 (0.83-1.09); PROTHROMBIN TIME (PATIENT) 11.8 SEC (9.7-13.0)
[2020-11-26 11:25] LABS: ACTIVATED PTT 32.7 SECONDS (25.2-36.5)
[2020-11-26 11:32] LABS: CALCIUM 9.5 mg/dL (8.5-10.1)
[2020-11-26 11:33] LABS: ALBUMIN 2.9 g/dl (3.4-5.0); BLOOD UREA NITROGEN 13.6 mg/dL (7-18)
[2020-11-26 11:36] LABS: CREATININE 0.7 mg/dL (0.55-1.3)
[2020-11-26 11:37] LABS: BILIRUBIN,TOTAL 0.6 mg/dL (0.2-1)
[2020-11-26 14:45] LABS: EPI CELLS 22 /uL (0-25.1); HYALINE CASTS 7 /uL (0-3.1); URINE APPEARANCE CLEAR; URINE BACTERIA 57 /uL (0-1359); URINE BILIRUBIN NEGATIVE (NEGATIVE); URINE COLOR YELLOW; URINE GLUCOSE (UA) 3+ (NEGATIVE); URINE KETONE 1+ (NEGATIVE); URINE LEUK ESTERASE NEGATIVE (NEGATIVE); URINE NITRITE NEGATIVE (NEGATIVE); URINE PROTEIN 4+ (NEGATIVE); URINE RBC 39 /uL (0-23.9); URINE WBC 9 /uL (0-25.8)
[2020-11-26] MEDS: ATORVASTATIN CA 40 MG TABLET (FP) PO SCH (21:59)
[2020-11-26] MEDS: INSULIN SLIDING SCALE (NOVOLOG) 1 VIAL SQ SCH (22:11)
[2020-11-27] MEDS: metFORMIN HCL 500 MG TABLET (FP) PO SCH ×2 (06:13→17:49)
[2020-11-27] MEDS: INSULIN SLIDING SCALE (NOVOLOG) 1 VIAL SQ SCH ×4 (06:13→22:06)
[2020-11-27 07:38] LABS: BASO % 0.6 % (0-2.0); EOS % 0.2 % (0-4.5); HEMATOCRIT 34.4 % (32.4-45.2); LYMPH % 31.2 % (8-40); MCHC 34.7 g/dl (32.0-36.0); MEAN CELL VOLUME 86.3 fl (80-96); MEAN PLT VOLUME 8.4 fl (7.5-11.1); MONO % 9.8 % (3.8-10.2); NEUT % 58.2 % (42.8-82.8); PLATELET COUNT 318 K/MM3 (134-434); RBC 3.99 M/mm3 (3.60-5.2); RDW 13.3 % (11.6-15.6); WHITE BLOOD COUNT 5.4 K/mm3 (4.0-10.0)
[2020-11-27 08:15] LABS: CALCIUM 8.8 mg/dL (8.5-10.1)
[2020-11-27 08:16] LABS: ALBUMIN 2.6 g/dl (3.4-5.0); BLOOD UREA NITROGEN 14.2 mg/dL (7-18)
[2020-11-27 08:19] LABS: CREATININE 0.8 mg/dL (0.55-1.3)
[2020-11-27 08:21] LABS: BILIRUBIN,TOTAL 0.6 mg/dL (0.2-1); TOT PROT 5.8 g/dl (6.4-8.2)
[2020-11-27] MEDS: ASPIRIN COATED 81 MG TABLET.EC PO SCH (09:31)
[2020-11-27] MEDS: ENOXAPARIN NA (PORCINE) 40 MG/0.4 ML DISP.SYRIN SQ SCH (09:31)
[2020-11-27] MEDS: amLODIPine BESYLATE 5 MG TABLET (FP) PO SCH (09:31)
[2020-11-27] MEDS: HYDROCHLOROTHIAZIDE 25 MG TABLET (FP) PO SCH (09:31)
[2020-11-27] MEDS ORDERED: INSULIN (NOVOLOG) ASPART 100 UNITS/ML 10ML VIAL ONE (17:48)
[2020-11-27] MEDS: ATORVASTATIN CA 40 MG TABLET (FP) PO SCH (22:06)
[2020-11-28] MEDS ORDERED: POTASSIUM CHLORIDE TABS 10 MEQ TABLET.ER (FP) PO ONE (00:45)
[2020-11-28 07:07] LABS: BASO % 0.6 % (0-2.0); EOS % 0.2 % (0-4.5); HEMATOCRIT 36.5 % (32.4-45.2); HEMOGLOBIN 12.6 GM/dL (10.7-15.3); LYMPH % 26.7 % (8-40); MCH 29.7 pg (25.7-33.7); MCHC 34.4 g/dl (32.0-36.0); MEAN CELL VOLUME 86.4 fl (80-96); MEAN PLT VOLUME 8.4 fl (7.5-11.1); MONO % 10.3 % (3.8-10.2); NEUT % 62.2 % (42.8-82.8); PLATELET COUNT 343 K/MM3 (134-434); RBC 4.22 M/mm3 (3.60-5.2); RDW 13.5 % (11.6-15.6)
[2020-11-28 07:33] LABS: ALBUMIN 2.9 g/dl (3.4-5.0); BLOOD UREA NITROGEN 14.9 mg/dL (7-18); CALCIUM 9.5 mg/dL (8.5-10.1)
[2020-11-28] MEDS: metFORMIN HCL 500 MG TABLET (FP) PO SCH ×2 (07:34→16:42)
[2020-11-28] MEDS: INSULIN SLIDING SCALE (NOVOLOG) 1 VIAL SQ SCH ×4 (07:34→22:39)
[2020-11-28 07:36] LABS: CREATININE 0.8 mg/dL (0.55-1.3)
[2020-11-28 07:38] LABS: BILIRUBIN,TOTAL 0.6 mg/dL (0.2-1); TOT PROT 6.5 g/dl (6.4-8.2)
[2020-11-28] MEDS: ENOXAPARIN NA (PORCINE) 40 MG/0.4 ML DISP.SYRIN SQ SCH (09:08)
[2020-11-28] MEDS: amLODIPine BESYLATE 5 MG TABLET (FP) PO SCH (09:08)
[2020-11-28] MEDS: HYDROCHLOROTHIAZIDE 25 MG TABLET (FP) PO SCH (09:08)
[2020-11-28] MEDS: ASPIRIN COATED 81 MG TABLET.EC PO SCH (09:08)
[2020-11-28] MEDS ORDERED: INSULIN (NOVOLOG) ASPART 100 UNITS/ML 10ML VIAL ONE (16:37)
[2020-11-28] MEDS: ATORVASTATIN CA 40 MG TABLET (FP) PO SCH (22:39)
[2020-11-29] MEDS: metFORMIN HCL 500 MG TABLET (FP) PO SCH ×2 (06:46→17:16)
[2020-11-29] MEDS: INSULIN SLIDING SCALE (NOVOLOG) 1 VIAL SQ SCH ×4 (06:47→21:42)
[2020-11-29] MEDS: ASPIRIN COATED 81 MG TABLET.EC PO SCH (09:36)
[2020-11-29] MEDS: amLODIPine BESYLATE 5 MG TABLET (FP) PO SCH (09:36)
[2020-11-29] MEDS: ENOXAPARIN NA (PORCINE) 40 MG/0.4 ML DISP.SYRIN SQ SCH (09:37)
[2020-11-29] MEDS: HYDROCHLOROTHIAZIDE 25 MG TABLET (FP) PO SCH (09:37)
[2020-11-29] MEDS ORDERED: LISINOPRIL 5 MG TABLET PO ONE (18:59)
[2020-11-29] MEDS: ATORVASTATIN CA 40 MG TABLET (FP) PO SCH (21:42)
[2020-11-30] MEDS: metFORMIN HCL 500 MG TABLET (FP) PO SCH ×2 (06:15→18:02)
[2020-11-30] MEDS: INSULIN SLIDING SCALE (NOVOLOG) 1 VIAL SQ SCH ×4 (06:15→22:07)
[2020-11-30] MEDS: ENOXAPARIN NA (PORCINE) 40 MG/0.4 ML DISP.SYRIN SQ SCH (11:24)
[2020-11-30] MEDS: ASPIRIN COATED 81 MG TABLET.EC PO SCH (11:24)
[2020-11-30] MEDS: amLODIPine BESYLATE 5 MG TABLET (FP) PO SCH (11:24)
[2020-11-30] MEDS: HYDROCHLOROTHIAZIDE 25 MG TABLET (FP) PO SCH (11:24)
[2020-11-30] MEDS: LISINOPRIL 5 MG TABLET PO SCH (11:24)
[2020-11-30 13:49] LABS: N-TERMINAL BNP 195.4 pg/ml (5-125)
[2020-11-30] MEDS ORDERED: INSULIN (NOVOLOG) ASPART 100 UNITS/ML 10ML VIAL ONE (22:05)
[2020-11-30] MEDS: ATORVASTATIN CA 40 MG TABLET (FP) PO SCH (22:07)
[2020-12-01] MEDS: INSULIN SLIDING SCALE (NOVOLOG) 1 VIAL SQ SCH ×4 (06:10→21:41)
[2020-12-01] MEDS: metFORMIN HCL 500 MG TABLET (FP) PO SCH ×2 (07:00→16:34)
[2020-12-01] MEDS: ENOXAPARIN NA (PORCINE) 40 MG/0.4 ML DISP.SYRIN SQ SCH (10:28)
[2020-12-01] MEDS: LISINOPRIL 5 MG TABLET PO SCH (10:28)
[2020-12-01] MEDS: amLODIPine BESYLATE 5 MG TABLET (FP) PO SCH (10:29)
[2020-12-01] MEDS: HYDROCHLOROTHIAZIDE 25 MG TABLET (FP) PO SCH (10:29)
[2020-12-01] MEDS: ASPIRIN COATED 81 MG TABLET.EC PO SCH (10:29)
[2020-12-01] MEDS: ATORVASTATIN CA 40 MG TABLET (FP) PO SCH (21:40)
[2020-12-02] MEDS: metFORMIN HCL 500 MG TABLET (FP) PO SCH ×2 (06:18→16:38)
[2020-12-02] MEDS: INSULIN SLIDING SCALE (NOVOLOG) 1 VIAL SQ SCH ×4 (06:18→21:19)
[2020-12-02] MEDS: HYDROCHLOROTHIAZIDE 25 MG TABLET (FP) PO SCH (09:34)
[2020-12-02] MEDS: ASPIRIN COATED 81 MG TABLET.EC PO SCH (09:34)
[2020-12-02] MEDS: LISINOPRIL 5 MG TABLET PO SCH (09:34)
[2020-12-02] MEDS: ENOXAPARIN NA (PORCINE) 40 MG/0.4 ML DISP.SYRIN SQ SCH (09:34)
[2020-12-02] MEDS: amLODIPine BESYLATE 5 MG TABLET (FP) PO SCH (09:34)
[2020-12-02] MEDS: ATORVASTATIN CA 40 MG TABLET (FP) PO SCH (21:19)
[2020-12-03] MEDS: INSULIN SLIDING SCALE (NOVOLOG) 1 VIAL SQ SCH ×4 (06:49→22:35)
[2020-12-03] MEDS: metFORMIN HCL 500 MG TABLET (FP) PO SCH ×2 (06:49→17:18)
[2020-12-03] MEDS: amLODIPine BESYLATE 5 MG TABLET (FP) PO SCH (09:20)
[2020-12-03] MEDS: LISINOPRIL 5 MG TABLET PO SCH (09:20)
[2020-12-03] MEDS: ENOXAPARIN NA (PORCINE) 40 MG/0.4 ML DISP.SYRIN SQ SCH (09:21)
[2020-12-03] MEDS: HYDROCHLOROTHIAZIDE 25 MG TABLET (FP) PO SCH (09:21)
[2020-12-03] MEDS: ASPIRIN COATED 81 MG TABLET.EC PO SCH (09:21)
[2020-12-03] MEDS: ATORVASTATIN CA 40 MG TABLET (FP) PO SCH (22:31)
[2020-12-04] MEDS: INSULIN SLIDING SCALE (NOVOLOG) 1 VIAL SQ SCH ×2 (06:44→11:06)
[2020-12-04] MEDS: metFORMIN HCL 500 MG TABLET (FP) PO SCH (06:45)
[2020-12-04] MEDS: LISINOPRIL 5 MG TABLET PO SCH (09:32)
[2020-12-04] MEDS: amLODIPine BESYLATE 5 MG TABLET (FP) PO SCH (09:32)
[2020-12-04] MEDS: HYDROCHLOROTHIAZIDE 25 MG TABLET (FP) PO SCH (09:33)
[2020-12-04] MEDS ORDERED: ASPIRIN 81 MG CHEWABLE TABLETS PO SCH (10:00)
[2020-12-04] MEDS ORDERED: POLYETHYLENE GLYCOL 3350 119 GM BTL PO ONE (11:15)
[2020-12-04 12:19] VITALS: BP 128/66; PULSE 70; TEMP 97.8
== END 2020-12-04 16:25 | DRG 65 ==
LOC: JER 10:09 → JERBED 10:56 → J4W 17:47
PROVIDERS: ADMIT Internal Medicine; ATTEND Internal Medicine
DX: I63.9 Cerebral infarction, unspecified (principal); I69.354 Hemiplegia and hemiparesis following cerebral infarction affecting left non-dominant side; I10 Essential (primary) hypertension; I69.392 Facial weakness following cerebral infarction; E11.9 Type 2 diabetes mellitus without complications; E78.5 Hyperlipidemia, unspecified; R29.707 NIHSS score 7; E66.9 Obesity, unspecified; Z68.30 Body mass index [BMI] 30.0-30.9, adult; W18.39XA Other fall on same level, initial encounter; Y92.238 Other place in hospital as the place of occurrence of the external cause
CPT/HCPCS: 36415; 70450-TC; 70496-TC; 70498-TC; 70551-TC; 73562-TC-LT-FY; 80053; 80061; 81003; 82550; 82553; 82962; 83036; 83721; 83880; 84443; 84484; 85025; 85610; 85730; 93005; 93010; 93306-TC; 93880-TC; 97116-GP; 97162-GP; 99285-25; C9803; Q9967; U0003; U0005